=== PATIENT | female | born 1955 | race Caucasian/White ===

== ENCOUNTER 2024-09-17 12:28 | Inpatient (IN) ==
[2024-09-17] MEDS ORDERED: ONDANSETRON 4 MG/2 ML VIAL IV PRN (12:40)
[2024-09-17] MEDS: 0.9 % SODIUM CHLORIDE 1,000 ML IV SCH (15:09)
[2024-09-17] MEDS: PEG 3350/NA SULF,BICARB,CL/KCL 4,000 ML ORAL.SOL PO ONE ×2 (15:09→15:48)
[2024-09-17] MEDS: PIPERACILLIN SODIUM/TAZOBACTAM 3.375 GM in DEXTROSE 5% IN WATER 100 ML IV SCH (15:09)
[2024-09-17] MEDS: 0.9 % SODIUM CHLORIDE 10 ML SYRINGE IV SCH (15:10)
[2024-09-17 15:24] LABS: Basophils # (Auto) 0.05 K/mcL (0.00-0.30); Basophils % (Auto) 0.6 % (0.0-2.0); Eosinophils # (Auto) 0.07 K/mcL (0.00-0.70); Eosinophils % (Auto) 0.8 % (0.0-7.0); Hematocrit 35.7 % (34.1-44.9); Hemoglobin 11.8 g/dL (11.2-15.7); Lymphocytes # (Auto) 1.81 K/mcL (1.50-4.80); Lymphocytes % (Auto) 20.9 % (15.5-49.0); Mean Cell Volume 97.5 fL (80.0-100.0); Mean Corpuscular HGB Conc 33.1 g/dL (31.0-36.0); Mean Platelet Volume 10.2 fL (8.8-12.5); Monocytes # (Auto) 0.82 K/mcL (0.10-0.90); Monocytes % (Auto) 9.5 % (1.0-12.0); Neutrophils % (Auto) 67.9 % (38.0-78.0); Platelet Count 167 K/mcL (140-440); RBC 3.66 M/mcL (3.59-5.38); Red Cell Distribution Width 13.7 % (11.5-14.5); WBC 8.6 K/mcL (4.5-11.0)
[2024-09-17 15:43] LABS: ALT/SGPT 19 U/L (<40); AST/SGOT 16 U/L (<32); Albumin/Globulin Ratio 1.7 (1.0-2.3); Alkaline Phosphatase 54 U/L (39-117); Bilirubin,Direct < 0.2 mg/dL (0-0.3); Bilirubin,Total 0.4 mg/dL (0.1-1.0); Blood Urea Nitrogen 23 mg/dL (8-23); C-Reactive Protein < 0.30 mg/dL (0.03-0.80); Calcium 9.8 mg/dL (8.6-10.4); Carbon Dioxide 23 mmol/L (22-30); Chloride 101 mmol/L (96-108); Globulin 2.3 gm/dL (2.2-3.7); Glomerular Filtration Rate 76; Glucose 86 mg/dL (70-105); Lactate Dehydrogenase 147 U/L (135-225); Phosphorous 3.7 mg/dL (2.5-4.5); Potassium 4.1 mmol/L (3.3-5.1); Sodium 137 mmol/L (133-145); Triglycerides 176 mg/dL (<150); Uric Acid 5.6 mg/dL (2.5-8.0)
[2024-09-18] MEDS: ACETAMINOPHEN 1,000 MG/100 ML BAG IV PRN (03:55)
[2024-09-18] MEDS ORDERED: KETAMINE 50 MG/ML Syringe IV ONE (09:51)
[2024-09-18] MEDS ORDERED: fentaNYL 100 MCG/2 ML VIAL ONE (09:51)
[2024-09-18] MEDS ORDERED: PROPOFOL 200 MG/20 ML VIAL IV ONE (09:51)
[2024-09-18] MEDS ORDERED: FAMOTIDINE/PF 20 MG/2 ML VIAL IV ONE (09:52)
[2024-09-18] MEDS ORDERED: ROCURONIUM 10 MG/ML ML IV ONE (09:52)
[2024-09-18] MEDS ORDERED: LIDOCAINE 2% PF 5 ML VIAL ONE (09:52)
[2024-09-18] MEDS ORDERED: MAGNESIUM SULFATE 2 GM/50 ML BAG IV ONE (09:52)
[2024-09-18] MEDS ORDERED: ONDANSETRON 4 MG/2 ML VIAL ONE (09:52)
[2024-09-18] MEDS ORDERED: SUCCINYLCHOLINE 200 MG/10 ML VIAL IV ONE (09:52)
[2024-09-18] MEDS ORDERED: GLYCOPYRROLATE 0.2 MG/ML VIAL IV ONE (09:52)
[2024-09-18] MEDS ORDERED: DEXAMETHASONE 10 MG/ML VIAL ONE (09:52)
[2024-09-18] MEDS ORDERED: PHENYLephrine 1 MG/10 ML SYRINGE (ANEST) ONE (12:41)
[2024-09-18] MEDS ORDERED: HYDROmorphone 0.5 MG/0.5 ML SYRINGE ONE (12:55)
[2024-09-18] MEDS ORDERED: SUGAMMADEX SODIUM 200 MG/2 ML VIAL IV ONE (14:16)
[2024-09-18] MEDS ORDERED: DROPERIDOL 5 MG/2 ML VIAL IV PRN (14:57)
[2024-09-18] MEDS ORDERED: NALOXONE HCL 0.4 MG/ML VIAL IV PRN (14:57)
[2024-09-18] MEDS ORDERED: ONDANSETRON 4 MG/2 ML VIAL IV PRN (14:57)
[2024-09-18] MEDS ORDERED: fentaNYL 100 MCG/2 ML VIAL IV PRN (14:57)
[2024-09-18] MEDS ORDERED: METHOCARBAMOL 1,000 MG/10 ML VIAL IV PRN (14:57)
[2024-09-18] MEDS ORDERED: IPRATROPIUM/ALBUTEROL 3 ML AMPUL.NEB NEB PRN (14:57)
[2024-09-18] MEDS ORDERED: HYDROmorphone 0.5 MG/0.5 ML SYRINGE IV PRN (14:57)
[2024-09-18] MEDS ORDERED: LACTATED RINGERS 250 ML IV PRN (14:57)
[2024-09-18] MEDS: ACETAMINOPHEN 1,000 MG/100 ML BAG IV ONE (15:03)
[2024-09-18] MEDS: HYDROmorphone 0.5 MG/0.5 ML SYRINGE IV PRN (15:56)
[2024-09-18] MEDS: LACTATED RINGERS 1,000 ML IV SCH (15:57)
[2024-09-18] MEDS: ONDANSETRON 4 MG/2 ML VIAL IV PRN (16:01)
[2024-09-18] MEDS: BENZOCAINE/MENTHOL 1 LOZENGE PO PRN (16:03)
[2024-09-18] MEDS: METOCLOPRAMIDE 10 MG/2 ML VIAL IV SCH (17:49)
[2024-09-19 05:54] LABS: Basophils # (Auto) 0.03 K/mcL (0.00-0.30); Basophils % (Auto) 0.2 % (0.0-2.0); Eosinophils # (Auto) 0.01 K/mcL (0.00-0.70); Eosinophils % (Auto) 0.1 % (0.0-7.0); Hematocrit 30.9 % (34.1-44.9); Hemoglobin 10.5 g/dL (11.2-15.7); Lymphocytes # (Auto) 1.33 K/mcL (1.50-4.80); Mean Cell Volume 96.3 fL (80.0-100.0); Mean Platelet Volume 9.9 fL (8.8-12.5); Monocytes # (Auto) 1.26 K/mcL (0.10-0.90); Monocytes % (Auto) 9.5 % (1.0-12.0); Platelet Count 125 K/mcL (140-440); RBC 3.21 M/mcL (3.59-5.38); Red Cell Distribution Width 13.7 % (11.5-14.5); WBC 13.3 K/mcL (4.5-11.0)
[2024-09-20 06:01] LABS: Basophils # (Auto) 0.04 K/mcL (0.00-0.30); Basophils % (Auto) 0.3 % (0.0-2.0); Eosinophils # (Auto) 0.03 K/mcL (0.00-0.70); Eosinophils % (Auto) 0.2 % (0.0-7.0); Hematocrit 31.1 % (34.1-44.9); Hemoglobin 10.4 g/dL (11.2-15.7); Lymphocytes # (Auto) 1.59 K/mcL (1.50-4.80); Mean Cell Volume 97.2 fL (80.0-100.0); Mean Corpuscular HGB Conc 33.4 g/dL (31.0-36.0); Mean Platelet Volume 10.1 fL (8.8-12.5); Monocytes # (Auto) 1.14 K/mcL (0.10-0.90); Monocytes % (Auto) 9.3 % (1.0-12.0); Platelet Count 122 K/mcL (140-440); WBC 12.2 K/mcL (4.5-11.0)
[2024-09-20 06:19] LABS: ALT/SGPT 26 U/L (<40); AST/SGOT 20 U/L (<32); Albumin 3.5 gm/dL (3.2-5.2); Albumin/Globulin Ratio 1.8 (1.0-2.3); Alkaline Phosphatase 49 U/L (39-117); Bilirubin,Direct 0.3 mg/dL (<0.3); Bilirubin,Total 0.7 mg/dL (0.1-1.0); Blood Urea Nitrogen 12 mg/dL (8-23); Calcium 8.6 mg/dL (8.6-10.4); Carbon Dioxide 25 mmol/L (22-30); Chloride 103 mmol/L (96-108); Glomerular Filtration Rate 89; Glucose 96 mg/dL (70-105); Lactate Dehydrogenase 160 U/L (135-225); Phosphorous 2.1 mg/dL (2.5-4.5); Potassium 3.6 mmol/L (3.3-5.1); Sodium 139 mmol/L (133-145); Triglycerides 100 mg/dL (<150); Uric Acid 2.7 mg/dL (2.5-8.0)
[2024-09-20] MEDS: POTASSIUM PHOSPHATE 40 MEQ in DEXTROSE 5% IN WATER 500 ML IV SCH (13:36)
[2024-09-21 05:50] LABS: Basophils # (Auto) 0.03 K/mcL (0.00-0.30); Basophils % (Auto) 0.3 % (0.0-2.0); Eosinophils # (Auto) 0.14 K/mcL (0.00-0.70); Eosinophils % (Auto) 1.5 % (0.0-7.0); Hematocrit 30.7 % (34.1-44.9); Hemoglobin 10.2 g/dL (11.2-15.7); Lymphocytes # (Auto) 1.25 K/mcL (1.50-4.80); Lymphocytes % (Auto) 13.4 % (15.5-49.0); Mean Cell Volume 98.7 fL (80.0-100.0); Mean Corpuscular HGB Conc 33.2 g/dL (31.0-36.0); Monocytes # (Auto) 0.88 K/mcL (0.10-0.90); Monocytes % (Auto) 9.4 % (1.0-12.0); Neutrophils % (Auto) 75.2 % (38.0-78.0); Platelet Count 117 K/mcL (140-440); RBC 3.11 M/mcL (3.59-5.38); WBC 9.4 K/mcL (4.5-11.0)
[2024-09-22 05:50] LABS: Basophils # (Auto) 0.03 K/mcL (0.00-0.30); Basophils % (Auto) 0.5 % (0.0-2.0); Hematocrit 30.5 % (34.1-44.9); Lymphocytes # (Auto) 0.97 K/mcL (1.50-4.80); Lymphocytes % (Auto) 14.7 % (15.5-49.0); Mean Cell Volume 99.7 fL (80.0-100.0); Mean Corpuscular HGB Conc 32.8 g/dL (31.0-36.0); Mean Platelet Volume 9.8 fL (8.8-12.5); Monocytes # (Auto) 0.58 K/mcL (0.10-0.90); Monocytes % (Auto) 8.8 % (1.0-12.0); Neutrophils % (Auto) 72.8 % (38.0-78.0); Platelet Count 125 K/mcL (140-440); RBC 3.06 M/mcL (3.59-5.38); Red Cell Distribution Width 13.8 % (11.5-14.5); WBC 6.6 K/mcL (4.5-11.0)
[2024-09-22 06:36] LABS: ALT/SGPT 19 U/L (<40); AST/SGOT 15 U/L (<32); Albumin 3.5 gm/dL (3.2-5.2); Albumin/Globulin Ratio 1.7 (1.0-2.3); Alkaline Phosphatase 50 U/L (39-117); Bilirubin,Direct 0.4 mg/dL (<0.3); Bilirubin,Total 0.8 mg/dL (0.1-1.0); Blood Urea Nitrogen 13 mg/dL (8-23); Calcium 9.1 mg/dL (8.6-10.4); Carbon Dioxide 34 mmol/L (22-30); Chloride 103 mmol/L (96-108); Globulin 2.1 gm/dL (2.2-3.7); Glomerular Filtration Rate 76; Glucose 91 mg/dL (70-105); Lactate Dehydrogenase 151 U/L (135-225); Phosphorous 3.4 mg/dL (2.5-4.5); Potassium 3.1 mmol/L (3.3-5.1); Sodium 150 mmol/L (133-145); Triglycerides 130 mg/dL (<150); Uric Acid 4.2 mg/dL (2.5-8.0)
[2024-09-23] MEDS: oxyCODONE IR 5 MG TABLET PO PRN (22:08)
[2024-09-24 07:28] LABS: Basophils # (Auto) 0.05 K/mcL (0.00-0.30); Basophils % (Auto) 0.7 % (0.0-2.0); Eosinophils # (Auto) 0.33 K/mcL (0.00-0.70); Eosinophils % (Auto) 4.6 % (0.0-7.0); Lymphocytes % (Auto) 20.9 % (15.5-49.0); Mean Cell Volume 98.5 fL (80.0-100.0); Mean Corpuscular HGB Conc 33.3 g/dL (31.0-36.0); Mean Platelet Volume 10.6 fL (8.8-12.5); Monocytes # (Auto) 0.61 K/mcL (0.10-0.90); Monocytes % (Auto) 8.5 % (1.0-12.0); Neutrophils % (Auto) 65.2 % (38.0-78.0); Platelet Count 136 K/mcL (140-440); RBC 2.74 M/mcL (3.59-5.38); Red Cell Distribution Width 13.7 % (11.5-14.5); WBC 7.2 K/mcL (4.5-11.0)
[2024-09-24 07:55] LABS: ALT/SGPT 17 U/L (<40); AST/SGOT 15 U/L (<32); Albumin 3.1 gm/dL (3.2-5.2); Albumin/Globulin Ratio 1.7 (1.0-2.3); Alkaline Phosphatase 48 U/L (39-117); Bilirubin,Direct < 0.2 mg/dL (0-0.3); Bilirubin,Total 0.5 mg/dL (0.1-1.0); Blood Urea Nitrogen 7 mg/dL (8-23); Calcium 8.5 mg/dL (8.6-10.4); Carbon Dioxide 27 mmol/L (22-30); Chloride 105 mmol/L (96-108); Globulin 1.8 gm/dL (2.2-3.7); Glomerular Filtration Rate 93; Glucose 91 mg/dL (70-105); Lactate Dehydrogenase 174 U/L (135-225); Potassium 2.8 mmol/L (3.3-5.1); Sodium 142 mmol/L (133-145); Triglycerides 160 mg/dL (<150)
[2024-09-24] MEDS: POTASSIUM CHLORIDE 20 MEQ TABLET PO SCH ×2 (08:21→08:37)
[2024-09-24 16:15] VITALS: TEMP 98.6; O2SAT 99
[2024-09-24] MEDS: PNEUMOCOCCAL 23-VAL P-SAC VAC 0.5 ML SYRINGE IM ONE (16:42)
== END 2024-09-24 17:22 | disposition home or self-care (01) | DRG 330 ==
LOC: MEDSUR 13:23
PROVIDERS: ADMIT Family Medicine Adult Medicine; ATTEND Family Medicine Adult Medicine